=== PATIENT | male | born 1975 | race African-American/Black ===

== ENCOUNTER 2019-06-22 16:48 | Emergency (ER) | payer BC ==
[~2019-06-22] VITALS: Ht 188 cm; Wt 102.0 kg
[2019-06-22] MEDS ORDERED: KETOROLAC 30MG/ML VIAL IM ONE (19:00)
[2019-06-22 20:43] VITALS: BP 110/61
== END 2019-06-22 20:47 | disposition home or self-care (01) ==
LOC: ER 16:48
DX: S39.012A Strain of muscle, fascia and tendon of lower back, initial encounter (principal); X50.0XXA Overexertion from strenuous movement or load, initial encounter; Y93.89 Activity, other specified; Y92.018 Other place in single-family (private) house as the place of occurrence of the external cause
CPT/HCPCS: 72100; 96372; 99283; J1885